=== PATIENT | female | born 1980 | race American Indian/Alaskan Native ===

== ENCOUNTER 2018-01-04 08:51 | Outpatient (CLI) | payer MEDICAID ==
[2018-01-04] MEDS ORDERED: PROVENTIL IH ONE (10:08)
[2018-01-04 11:08] LABS: Hematocrit 37.1 % (30.3-42.9); Hemoglobin 12.7 gm/dl (10.1-14.3); Mean Corpuscular HGB Conc 34 % (30-34); Mean Corpuscular Hemoglobin 33 pg (28-32); Mean Corpuscular Volume 96 fl (79-97); Platelet Count 216 K/mm3 (140-440); Red Blood Count 3.86 M/mm3 (3.65-5.03); Red Cell Distribution Width 12.7 % (13.2-15.2)
[2018-01-04 11:15] LABS: Alanine Aminotransferase 10 units/L (7-56); Albumin 4.2 g/dL (3.9-5); BUN/Creatinine Ratio 20; Blood Urea Nitrogen 12 mg/dL (7-17); Calcium 8.8 mg/dL (8.4-10.2); Chol/HDL Ratio 4.02 %; HDL Cholesterol 46 mg/dL (40-59); Hemolysis Index 18; LDL Cholesterol,Direct 122 mg/dL (50-130)
--- NOTE | 2018-01-04 15:17 | XRay Report ---
ROUTINE CHEST, TWO VIEWS: HISTORY: Cough. The trachea, heart, mediastinal contour, lung pedroza and bony thorax are unremarkable. IMPRESSION: Unremarkable chest x-ray.
--- NOTE | 2018-01-05 02:30 | Pulmonary Function Test ---
PULMONARY FUNCTION TEST SPIROMETRY: FVC 3.11 liters, which is 104% of the predicted. FEV1 is 2.55 liters, which is 103% of the predicted. FEV1/FVC ratio is 82. FLOW VOLUME LOOP: FEF 25-75% is 2.53 liters per second, which is 89% of the predicted and MVV is 56% of the predicted. LUNG VOLUMES: Slow vital capacity 3.04 liters, which is 93% of the predicted. TLC 4.64 liters, which is 95% of predicted and ERV is 0.7 liters, which is 54% of the predicted and diffusion DLCO is 82% of the predicted. The patient's airway resistance is high and specific conductance is okay. IMPRESSION: Normal pulmonary function test except slight decrease in MVV and the patient's ABGs, pH 7.4, pCO2 is 35, pO2 is 112, bicarbonate is 22, O2 saturation 99% on room air, it is normal blood gases. JOB# [id number] CONRAD/JESSICA
== END 2018-01-04 08:52 | disposition home or self-care (01) ==
LOC: PF 08:51
PROVIDERS: ATTEND Internal Medicine
DX: R05 Cough (principal); R79.89 Other specified abnormal findings of blood chemistry; Z87.898 Personal history of other specified conditions
CPT/HCPCS: 36415; 36600; 71046; 80053; 80061; 82785; 82803; 84436; 84443; 85027; 94060; 94640; 94726; 94729